=== PATIENT | male | born 1960 | race Hispanic/Latino ===

== ENCOUNTER 2017-07-17 18:33 | Emergency (ER) | payer OTHER ==
[2017-07-17 18:44] VITALS: RESP 18; O2SAT 95; BMI 24.0
--- NOTE | 2017-07-17 20:20 | C.PDOC ---
History Of Present Illness 57 year old male who was brought in by EMS after he was found intoxicated in public. Patient admits to drinking today; denies any injuries or physical complaints at this time. Time Seen by Provider: 07/17/17 19:36 Chief Complaint (Nursing): Substance Abuse History Per: Patient History/Exam Limitations: no limitations Onset/Duration Of Symptoms: Hrs Current Symptoms Are (Timing): Still Present Suicide/Self Injury Attempted (Context): None Modifying Factor(s): Alcohol Associated Symptoms: denies: Depression, Suicidal Thoughts, Suicidal Plan Involuntary Hold By: None Recent travel outside of the [place]: No Past Medical History Reviewed: Historical Data, Nursing Documentation, Vital Signs Vital Signs: Last Vital Signs Temp 97.9 F 07/18/17 00:08 Pulse 87 07/18/17 00:08 Resp 18 07/18/17 00:08 BP 104/69 07/18/17 00:08 Pulse Ox 95 07/18/17 00:09 - Medical History PMH: Depression Surgical History: No Surg Hx Family History: States: Unknown Family Hx - Social History Hx Tobacco Use: Yes Hx Alcohol Use: Yes Hx Substance Use: No - Immunization History Hx Tetanus Toxoid Vaccination: No Hx Influenza Vaccination: No Hx Pneumococcal Vaccination: No Review Of Systems Constitutional: Positive for: Other (Inebriated). Negative for: Fever, Chills Gastrointestinal: Negative for: Nausea, Vomiting, Diarrhea Physical Exam - Physical Exam Appears: Non-toxic, No Acute Distress, Other (ETOH on breath) Skin: Normal Color, Warm, Dry Head: Atraumatic, Normacephalic Oral Mucosa: Moist Chest: Symmetrical Cardiovascular: Rhythm Regular Respiratory: Normal Breath Sounds, No Rales, No Rhonchi, No Wheezing Gastrointestinal/Abdominal: Soft, No Tenderness Extremity: Normal ROM (x4) Neurological/Psych: Oriented x3, Normal Speech, Normal Cognition Additional Physical Exam Comments: No trauma or injuries noted. ED Course And Treatment - Laboratory Results Result Diagrams: 07/17/17 20:31 07/17/17 20:31 O2 Sat by Pulse Oximetry: 95 Medical Decision Making Medical Decision Making: Plan: * Blood work Pt now ambulatory with coherent fluent speech.Clinically is sober Disposition - Disposition Disposition: HOME/ ROUTINE Disposition Time: 00:06 Condition: FAIR Additional Instructions: pt given list of community alcohol rehab centers Forms: [facility] ([place]) - Clinical Impression Clinical Impression: Alcohol abuse - Scribe Statement The provider has reviewed the documentation as recorded by the Scribe Danny Josue All medical record entries made by the Scribe were at my direction and personally dictated by me. I have reviewed the chart and agree that the record accurately reflects my personal performance of the history, physical exam, medical decision making, and the department course for this patient. I have also personally directed, reviewed, and agree with the discharge instructions and disposition.
[2017-07-17 20:39] LABS: BASO # 0.1 K/uL (0.0-0.2); BASO % 1.2 % (0.0-2.0); EOS # 0.3 K/uL (0.0-0.7); HEMATOCRIT 37.9 % (35.0-51.0); LYMPH # 2.5 K/uL (1.0-4.3); LYMPH % 28.7 % (20.0-40.0); MEAN CELL VOLUME 93.6 fL (80.0-94.0); MEAN CORPUSCULAR HEMOGLOBIN 31.8 pg (27.0-31.0); MEAN PLATELET VOLUME 7.3 fL (7.2-11.7); MONO % 12.1 % (0.0-10.0); RED CELL DISTRIBUTION WIDTH 14.4 % (11.5-14.5); WHITE BLOOD COUNT 8.6 K/uL (4.8-10.8)
[2017-07-17 20:46] LABS: CHLORIDE 104 mmol/L (98-107)
[2017-07-17 20:47] LABS: POTASSIUM 3.9 mmol/L (3.6-5.2); SODIUM 140 mmol/L (132-148)
[2017-07-17 20:49] LABS: CARBON DIOXIDE 23 mmol/L (22-30); GFR AFRICAN-AMERICAN > 60
[2017-07-17 20:50] LABS: ALCOHOL SERUM 240 mg/dl (0-10); BLOOD UREA NITROGEN 9 mg/dL (9-20); CALCIUM 8.4 mg/dl (8.6-10.4); GLUCOSE,RANDOM 90 mg/dL (75-110)
[2017-07-18 00:10] VITALS: BP 104/69; PULSE 87; TEMP 97.9
== END 2017-07-18 00:21 | disposition home or self-care (01) ==
LOC: C.ER 18:33
DX: F10.10 Alcohol abuse, uncomplicated (principal); Y90.8 Blood alcohol level of 240 mg/100 ml or more

== ENCOUNTER 2017-10-21 18:08 | Emergency (ER) | payer SELFPAY ==
[2017-10-21 18:41] VITALS: BMI 29.0
--- NOTE | 2017-10-21 21:33 | C.PDOC ---
History Of Present Illness 57 year old male is brought in by EMS after beign found in the street drinking. Patient admits to drinking alcohol today and when questioned if he has any complaints patient denies it and states he just wants a place to sleep. Patient denies CP, SOB, SI/HI, hallucinations. Time Seen by Provider: 10/21/17 21:05 Chief Complaint (Nursing): Substance Abuse History Per: Patient, EMS History/Exam Limitations: no limitations Onset/Duration Of Symptoms: Hrs Current Symptoms Are (Timing): Still Present Suicide/Self Injury Attempted (Context): None Modifying Factor(s): Alcohol Associated Symptoms: denies: Depression, Suicidal Thoughts, Suicidal Plan Recent travel outside of the [place]: No Additional History Per: Patient, EMS Past Medical History Reviewed: Historical Data, Nursing Documentation, Vital Signs Vital Signs: Last Vital Signs Temp 97.6 F 10/21/17 18:40 Pulse 95 H 10/21/17 18:40 Resp 18 10/21/17 18:40 BP 95/63 L 10/21/17 18:40 Pulse Ox 100 10/22/17 00:44 - Medical History PMH: Depression Surgical History: No Surg Hx Family History: States: Unknown Family Hx - Social History Hx Tobacco Use: Yes Hx Alcohol Use: Yes Hx Substance Use: No - Immunization History Hx Tetanus Toxoid Vaccination: No Hx Influenza Vaccination: No Hx Pneumococcal Vaccination: No Review Of Systems Constitutional: Negative for: Fever, Chills Cardiovascular: Negative for: Chest Pain, Palpitations Respiratory: Negative for: Cough, Shortness of Breath Gastrointestinal: Negative for: Nausea, Vomiting, Abdominal Pain Musculoskeletal: Negative for: Back Pain Skin: Negative for: Rash Neurological: Negative for: Weakness, Numbness Psych: Negative for: Depression, Suicidal ideation Physical Exam - Physical Exam Appears: Non-toxic, No Acute Distress Skin: Normal Color, Warm, Dry Head: Atraumatic, Normacephalic Eye(s): bilateral: Normal Inspection Nose: No Discharge, No Deformity Oral Mucosa: Moist Neck: Normal ROM, Supple Chest: Symmetrical Cardiovascular: Rhythm Regular, No Murmur Respiratory: Normal Breath Sounds, No Rales, No Rhonchi, No Wheezing Gastrointestinal/Abdominal: Soft, No Tenderness, No Guarding, No Rebound Extremity: Normal ROM, No Pedal Edema, No Calf Tenderness, No Deformity, No Swelling Neurological/Psych: Oriented x3, Normal Speech, Normal Cognition Gait: Steady ED Course And Treatment O2 Sat by Pulse Oximetry: 100 (On RA) Pulse Ox Interpretation: Normal Medical Decision Making Medical Decision Making: Impression : ETOH intoxication Plan: * accucheck * * 1243 am - patient resting comfortably. NO complaints. Case s/o to Dr. Castro at 0100. Disposition - Disposition Disposition Time: 01:00 Condition: STABLE Forms: [facility] ([place]) - Clinical Impression Clinical Impression: Alcohol abuse - Scribe Statement The provider has reviewed the documentation as recorded by the Scribe Santiago Albrecht All medical record entries made by the Scribe were at my direction and personally dictated by me. I have reviewed the chart and agree that the record accurately reflects my personal performance of the history, physical exam, medical decision making, and the department course for this patient. I have also personally directed, reviewed, and agree with the discharge instructions and disposition. Physician Patient Turnover Patient Signed Over To: Asim Castro Handoff Comments: pending sobriety, reevaluation and disposition
[2017-10-22] MEDS ORDERED: metroNIDAZOLE IV 500 mg/100 ml 500 MG/100 ML BAG ONE (02:14)
[2017-10-22 05:41] VITALS: BP 109/65; PULSE 99; RESP 16; TEMP 97.9; O2SAT 96
== END 2017-10-22 05:43 | disposition home or self-care (01) ==
LOC: C.ER 18:08
DX: F10.129 Alcohol abuse with intoxication, unspecified (principal); Z87.891 Personal history of nicotine dependence

== ENCOUNTER 2018-01-28 17:55 | Emergency (ER) | payer OTHER ==
[2018-01-28 18:53] VITALS: BMI 28.5
--- NOTE | 2018-01-28 21:38 | C.PDOC ---
History Of Present Illness 57 year old male brought in via EMS for public intoxication. Denies physical complaints at this time. Chief Complaint (Nursing): Substance Abuse History Per: Patient, EMS History/Exam Limitations: no limitations Onset/Duration Of Symptoms: Hrs Current Symptoms Are (Timing): Still Present Suicide/Self Injury Attempted (Context): None Modifying Factor(s): Alcohol Associated Symptoms: denies: Depression, Suicidal Thoughts Involuntary Hold By: None Recent travel outside of the [place]: No Past Medical History Reviewed: Historical Data, Nursing Documentation, Vital Signs Vital Signs: Last Vital Signs Temp 97.6 F 01/29/18 05:24 Pulse 77 01/29/18 05:24 Resp 20 01/29/18 05:24 BP 114/68 01/29/18 05:24 Pulse Ox 97 01/29/18 05:24 - Medical History PMH: Depression Family History: States: Unknown Family Hx - Social History Hx Tobacco Use: Yes Hx Alcohol Use: Yes Hx Substance Use: No - Immunization History Hx Tetanus Toxoid Vaccination: No Hx Influenza Vaccination: No Hx Pneumococcal Vaccination: No Review Of Systems Constitutional: Negative for: Fever, Chills Cardiovascular: Negative for: Chest Pain, Palpitations Respiratory: Negative for: Cough Gastrointestinal: Negative for: Nausea, Vomiting, Abdominal Pain Psych: Negative for: Suicidal ideation Physical Exam - Physical Exam Appears: Non-toxic, No Acute Distress, Other (ETOH on breath, no sign of injury) Skin: Normal Color, Warm, Dry Head: Atraumatic, Normacephalic Eye(s): bilateral: Normal Inspection Oral Mucosa: Moist Chest: Symmetrical, No Tenderness Cardiovascular: Rhythm Regular Respiratory: Normal Breath Sounds, No Rales, No Rhonchi, No Wheezing Gastrointestinal/Abdominal: Soft, No Tenderness Extremity: Normal ROM (x4) Neurological/Psych: Oriented x3, Normal Speech ED Course And Treatment O2 Sat by Pulse Oximetry: 96 Disposition - Disposition Referrals: [facility] [Outside] Former[facility], [facility] Service [Outside] Disposition: HOME/ ROUTINE Disposition Time: 02:00 Condition: IMPROVED Additional Instructions: Thank you for letting us take care of you today. The emergency medical care you received today was directed at your acute symptoms. If you were prescribed any medication, please fill it and take as directed. It may take several days for your symptoms to resolve. Return to the Emergency Department if your symptoms worsen, do not improve, or if you have any other problems. Please contact your doctor or call one of the physicians/clinics you have been referred to that are listed on the Patient Visit Information form that is included in your discharge packet. Bring any paperwork you were given at discharge with you along with any medications you are taking to your follow up visit. Our treatment cannot replace ongoing medical care by a primary care provider (PCP) outside of the emergency department. Thank you for allowing the [facility] team to be part of your care today. Follow up with the clinic in 3-5 days for outpatient management. Instructions: Alcohol Abuse and Alcoholism (DC) Forms: [facility] (Mongolian) - Clinical Impression Clinical Impression: Alcohol intoxication, Alcohol abuse - Scribe Statement The provider has reviewed the documentation as recorded by the Scribeb Josue All medical record entries made by the Scribe were at my direction and personally dictated by me. I have reviewed the chart and agree that the record accurately reflects my personal performance of the history, physical exam, medical decision making, and the department course for this patient. I have also personally directed, reviewed, and agree with the discharge instructions and disposition.
[2018-01-29 05:23] VITALS: RESP 20
[2018-01-29 05:25] VITALS: BP 114/68; PULSE 77; TEMP 97.6
[2018-01-29 05:39] VITALS: O2SAT 96
== END 2018-01-29 05:25 | disposition home or self-care (01) ==
LOC: C.ER 17:55
DX: F10.129 Alcohol abuse with intoxication, unspecified (principal); Y90.9 Presence of alcohol in blood, level not specified

== ENCOUNTER 2018-03-30 02:26 | Emergency (ER) | payer OTHER ==
[2018-03-30 02:26] VITALS: BMI 28.5
[2018-03-30 03:02] VITALS: BP 118/83; RESP 16; TEMP 97.6; O2SAT 97
--- NOTE | 2018-03-30 03:07 | C.PDOC ---
History Of Present Illness 57 year old male is brought to the ED by EMS for public intoxication. Patient was found sleeping in front of a restaurant intoxicated. Patient admits to drinking alcohol today. Patient denies SI/HI, hallucinations, fever, chills, CP , SOB. Time Seen by Provider: 03/30/18 02:44 Chief Complaint (Nursing): Substance Abuse History Per: Patient, EMS History/Exam Limitations: intoxication Onset/Duration Of Symptoms: Hrs Current Symptoms Are (Timing): Still Present Suicide/Self Injury Attempted (Context): None Modifying Factor(s): Alcohol Associated Symptoms: denies: Depression, Suicidal Thoughts, Suicidal Plan Involuntary Hold By: None Recent travel outside of the [place]: No Additional History Per: Patient, EMS Past Medical History Reviewed: Historical Data, Nursing Documentation, Vital Signs Vital Signs: Last Vital Signs Temp 97.6 F 03/30/18 02:37 Pulse 86 03/30/18 05:49 Resp 16 03/30/18 02:37 BP 118/83 03/30/18 02:37 Pulse Ox 97 03/30/18 03:08 - Medical History PMH: Depression Surgical History: No Surg Hx Family History: States: Unknown Family Hx - Social History Hx Tobacco Use: Yes Hx Alcohol Use: Yes Hx Substance Use: No - Immunization History Hx Tetanus Toxoid Vaccination: No Hx Influenza Vaccination: No Hx Pneumococcal Vaccination: No Review Of Systems Constitutional: Negative for: Fever, Chills Cardiovascular: Negative for: Chest Pain, Palpitations Respiratory: Negative for: Shortness of Breath Gastrointestinal: Negative for: Nausea, Vomiting Psych: Negative for: Depression, Suicidal ideation Physical Exam - Physical Exam Appears: Non-toxic, No Acute Distress, Other (arousable, intoxicated) Skin: Normal Color, Warm, Dry Head: Atraumatic, Normacephalic Eye(s): bilateral: Normal Inspection Oral Mucosa: Moist Neck: Normal ROM, Supple Chest: Symmetrical Cardiovascular: Rhythm Regular Respiratory: Normal Breath Sounds, No Rales, No Rhonchi, No Wheezing Gastrointestinal/Abdominal: Soft, No Tenderness, No Guarding, No Rebound Extremity: Normal ROM, No Tenderness, No Swelling Neurological/Psych: Oriented x3, Normal Speech Gait: Steady ED Course And Treatment O2 Sat by Pulse Oximetry: 97 (ON RA) Pulse Ox Interpretation: Normal Reassessment Condition: Improved (awake and alert, ambulating with steady gait) Disposition - Disposition Disposition: HOME/ ROUTINE Disposition Time: 05:48 Condition: IMPROVED Additional Instructions: Follow up with PMD/Clinic within 2-3 days. Return to ED if feel worse. 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 - Scribe Statement The provider has reviewed the documentation as recorded by the Scribe Santiago Albrecht All medical record entries made by the Scribe were at my direction and personally dictated by me. I have reviewed the chart and agree that the record accurately reflects my personal performance of the history, physical exam, medical decision making, and the department course for this patient. I have also personally directed, reviewed, and agree with the discharge instructions and disposition.
[2018-03-30 06:53] VITALS: PULSE 86
== END 2018-03-30 05:49 | disposition home or self-care (01) ==
LOC: C.ER 02:26
DX: F10.129 Alcohol abuse with intoxication, unspecified (principal)